=== PATIENT | female | born 1995 | race American Indian/Alaskan Native ===

== ENCOUNTER 2019-04-07 23:03 | Emergency (ER) | payer SELFPAY ==
[2019-04-07 23:12] VITALS: BP 121/68
--- NOTE | 2019-04-08 00:23 | Emergency Department Report ---
ED Back Pain/Injury HPI - General Chief Complaint: Back Pain/Injury Stated Complaint: LOWER BACK PAIN Time Seen by Provider: 04/07/19 23:33 Source: patient Limitations: No Limitations - History of Present Illness Initial Comments: Patient is a 24-year-old female presents emergency room with complaints of lower back pain for 2 months. She denies any fall, injury, urinary symptoms, nausea, vomiting, fever, bowel or bladder incontinence, numbness, weakness. She denies any past medical history allergies medications. Patient states her last cycle March 22. - Related Data Previous Rx's Medication Instructions Recorded Last Taken Type Cyclobenzaprine [Flexeril] 10 mg PO QHS PRN #10 tablet 04/08/19 Unknown Rx Naproxen [EC-Naproxen] 500 mg PO BID PRN #14 tablet. 04/08/19 Unknown Rx Allergies Allergy/AdvReac Type Severity Reaction Status Date / Time amoxicillin [From Trimox] Allergy Hives Verified 04/07/19 23:12 ED Review of Systems ROS: Stated complaint: LOWER BACK PAIN Other details as noted in HPI Comment: All other systems reviewed and negative ED Past Medical Hx - Past Medical History Previous Medical History?: No - Surgical History Past Surgical History?: No - Social History Smoking Status: Never Smoker Substance Use Type: Marijuana - Medications Home Medications: Home Medications Medication Instructions Recorded Confirmed Last Taken Type Cyclobenzaprine [Flexeril] 10 mg PO QHS PRN #10 tablet 04/08/19 Unknown Rx Naproxen [EC-Naproxen] 500 mg PO BID PRN #14 tablet. 04/08/19 Unknown Rx ED Physical Exam - General Limitations: No Limitations General appearance: alert, in no apparent distress - Head Head exam: Present: atraumatic, normocephalic - Eye Eye exam: Present: normal appearance - ENT ENT exam: Present: mucous membranes moist - Neck Neck exam: Present: normal inspection, full ROM. Absent: tenderness - Respiratory Respiratory exam: Present: normal lung sounds bilaterally. Absent: respiratory distress, wheezes, rales, rhonchi, stridor, chest wall tenderness, accessory muscle use, decreased breath sounds, prolonged expiratory - Cardiovascular Cardiovascular Exam: Present: regular rate, normal rhythm, normal heart sounds. Absent: systolic murmur, diastolic murmur, rubs, gallop - Back Exam Back exam: Present: normal inspection, full ROM, paraspinal tenderness (left sided paraspinal lumbar muscular TTP, no midline C-spine, T-spine or L-spine tenderness, no step offs no deformities, TTP over the last posterior rib on the left side, no crepitus,no ecchymosis). Absent: vertebral tenderness - Neurological Exam Neurological exam: Present: alert, oriented X3, CN II-XII intact, normal gait. Absent: motor sensory deficit - Psychiatric Psychiatric exam: Present: normal affect, normal mood - Skin Skin exam: Present: warm, dry, intact ED Course Vital Signs 04/07/19 23:08 Temperature 98.2 F Pulse Rate 85 Respiratory 16 Rate Blood Pressure 121/68 O2 Sat by Pulse 100 Oximetry ED Medical Decision Making - Medical Decision Making Patient is a 24-year-old female presents emergency room with complaints of lower back pain for 2 months. She denies any fall, injury, urinary symptoms, nausea, vomiting, fever, bowel or bladder incontinence, numbness, weakness. She denies any past medical history allergies medications. Patient states her last cycle March 22. vitals are normal. on exam: left sided paraspinal lumbar muscular TTP, no midline C-spine, T-spine or L-spine tenderness, no step offs no deformities, TTP over the last posterior rib on the left side, no crepitus,no ecchymosis, no focal neuro deficits. pt did not drive to the ED, pts discomfort treated while in the ED. pt given prescription for naproxen and flexeril. advised pt to please take medication as prescribed as needed. Do not drive or operate heavy machinery while taking muscle relaxer. follow up with an orthopedic doctor in the next 2-3 days for further examination and management. Return to the emergency room for any new or worsening symptoms. Critical care attestation.: If time is entered above; I have spent that time in minutes in the direct care of this critically ill patient, excluding procedure time. ED Disposition Clinical Impression: Rib pain on left side Lower back pain Qualifiers: Chronicity: acute Back pain laterality: left Sciatica presence: without sciatica Qualified Code(s): M54.5 - Low back pain Disposition: TO HOME OR SELFCARE Is pt being admited?: No Does the pt Need Aspirin: No Condition: Stable Instructions: Muscle Strain (ED), Arthralgia (ED) Additional Instructions: Please take medication as prescribed as needed. Do not drive or operate heavy machinery while taking muscle relaxer. follow up with an orthopedic doctor in the next 2-3 days for further examination and management. Return to the emergency room for any new or worsening symptoms. Prescriptions: Cyclobenzaprine [Flexeril] 10 mg PO QHS PRN #10 tablet PRN Reason: Muscle Spasm Naproxen [EC-Naproxen] 500 mg PO BID PRN #14 tablet.dr MURRAY Reason: pain Referrals: [facility] [Provider Group] - 2-3 Days Forms: Work/School Release Form(ED) Time of Disposition: 00:24 Print Language: RWANDAN
[2019-04-08] MEDS ORDERED: NAPROSYN PO ONE (00:27)
[2019-04-08] MEDS ORDERED: FLEXERIL PO ONE (00:27)
== END 2019-04-08 01:06 | disposition home or self-care (01) ==
LOC: ED 23:03
DX: M54.5 Low back pain (principal); R07.81 Pleurodynia; F12.10 Cannabis abuse, uncomplicated